=== PATIENT | male | born 2000 | race Caucasian/White ===

== ENCOUNTER 2019-02-16 08:41 | Day surgery (SDC) | payer BC ==
[~2019-02-16] VITALS: Ht 175.3 cm; Wt 98.0 kg
[~2019-02-16 08:41] MED LIST: ALEVE220 MG PO
[2019-02-16 12:04] VITALS: BP 138/65; Ht 175.3 cm; Wt 98.0 kg
[2019-02-16] MEDS ORDERED: HYDROCODON-ACE1 EAC7 PO (16:55)
--- NOTE | 2019-02-16 18:50 | NUR ---
PATIENT AMBULATES AROUND ROOM WITH CRUTCHES, TOUCH DOWN WEIGHT-BEARING TO RLE ONLY AT THIS TIME, USES CRUTCHES WITHOUT DIFFICULTY, DENIES UNSTEADINESS OR DIZZINESS. DISCHARGE INSTRUCTIONS REVIEWED WITH PATIENT AND FATHER AND GIRLFRIEND. DISCHARGED HOME VIA WHEELCHAIR TO PRIVATE VEHICLE WITH GIRLFRIEND AT 1900
--- NOTE | 2019-02-16 19:45 | OP ---
PATIENT NAME: MAGGIE RICHARDSON MEDICAL RECORD: [id number] :98 LOCATION:[facility] ADMISSION DATE: SURGEON: LUIZ ROSS DO DATE OF OPERATION: 02/16/2019 PROCEDURE PERFORMED: Right fourth toe PIP fusion. PREOPERATIVE DIAGNOSIS: Right fourth toe proximal phalanx fracture, comminuted and displaced. INDICATIONS: Mr. Richardson is a 18-year-old male who kicked in a couch after chasing a dog. He had immediate pain and x-rays were taken. He had a severely comminuted and displaced proximal phalanx fracture of the fourth toe. He was seen in my clinic and I told him we can probably percutaneously pin it or closed reduction with perc pinning, and if we can do that, we would put a plate on it. He is aware of that risk and aware of the risks of infection, bleeding, damage to nerves or vessels, need for further surgery. He signed the consent. SURGEON: Luiz Ross DO DESCRIPTION OF PROCEDURE: The patient was taken to the operative suite. He was given a block by anesthesia preoperatively and given 2 grams of Ancef preoperatively. He did not have a reaction to it, even though he had penicillin allergy. He was laid in the supine position, given general anesthetic, and LMA was placed. The right lower extremity was prepped and draped in sterile fashion. A time-out was performed and everyone was in agreement with correct side, site, patient, and procedure. The procedure was then began trying to reduce the toe and it did not reduce easily. I ended up doing a small incision and tried to reduce it again, it did not reduce. Then, I ended up opening it and seeing that he had a split T-type fracture through the joint line of the proximal phalanx into the middle phalanx of the fourth toe. This was tried to be pieced together. After several attempts of failing, I ended up doing the only thing possible that was salvageable, was a fusion at the PIP. The condyles were removed as they were split and not usable, had a very distal fracture. The rongeur was taken and the articular surface was taken off the proximal portion of the middle phalanx. Then, a pin was put through the distal end and through the PIP joint, holding it into place in a good location as far as rotation montes in flexion and extension. Then, a 4-hole 1.3-mm plate from [employer] was put on with 2 screws in the middle phalanx and 2 screws in the proximal phalanx. Then, the space that was formed after the condyles were removed was stuffed with cancellous bone chips. This was then irrigated and closed with 4-0 Monocryl in a horizontal mattress fashion. He was then dressed with Adaptic, 4 x 4, cast padding, and Quinton; awakened; and taken to recovery with a boot put on his foot in stable condition. BLOOD LOSS: Minimal. COMPLICATIONS: None. TRANSINT:[id number] Voice Confirmation ID: [id number] DOCUMENT ID: [id number] OPERATIVE REPORT [id number] MAGGIE RICHARDSON MICHAEL D, DO at 1947 CC: [id number] DICTATION DATE: 02/16/19 165 FLIGHT OPERATIONS MANAGER: 02/16/191918 [facility] [address] [place] [address]
== END 2019-02-16 19:00 | disposition home or self-care (01) ==
LOC: D.OPS 08:41 → D.PAN 10:45 → D.OPS 11:35 → D.PAN 11:35 → D.OPS 13:45
PROVIDERS: ATTEND Orthopaedic Surgery
DX: S92.511A Displaced fracture of proximal phalanx of right lesser toe(s), initial encounter for closed fracture (principal); W22.8XXA Striking against or struck by other objects, initial encounter; Z01.812 Encounter for preprocedural laboratory examination